=== PATIENT | female | born 1955 | race Caucasian/White ===

== ENCOUNTER → 2020-10-24 09:02 | Outpatient (CLI) | payer OTHER, SELFPAY ==
[2020-10-24 09:45] LABS: Add Manual Diff / Slide Review NO; Basophils Absolute Auto 100 /uL (0-100); Basophils Percent Auto 0.9 % (0-2); Eosinophils Absolute Auto 100 /uL (0-450); Eosinophils Percent Auto 1.8 % (2-4); Hematocrit 40.8 % (36-46); Hemoglobin 13.7 g/dL (12.0-16.0); Lymphocytes Absolute Auto 1700 /uL (1100-4500); Lymphocytes Percent Auto 29.3 % (25-40); Mean Corpuscular HGB Conc 33.6 % (30-36); Mean Corpuscular Hemoglobin 30.7 PG (26-34); Mean Corpuscular Volume 91.3 fL (80-100); Monocytes Absolute Auto 300 /uL (0-900); Monocytes Percent Auto 5.5 % (3-14); Neutrophils Absolute Auto 3600 /uL (1500-7000); Neutrophils Percent Auto 62.5 % (50-75); Platelet Count 190 X10^3/uL (150-400); Red Blood Cell Count 4.46 X10^6/uL (4.0-5.2); Red Cell Distribution Width 12.7 % (11.6-14.8); White Blood Cell Count 5.8 X10^3/uL (4.5-11.0)
[2020-10-24 09:54] LABS: Hemoglobin A1C% w Est Avg Glu 5.5 % (4.0-6.0)
[2020-10-24 10:02] LABS: Alanine Aminotransferase 21 IU/L (<35); Albumin 4.2 g/dL (3.5-5.0); Albumin Globulin Ratio 1.6 (1.0-2.8); Alkaline Phosphatase 82 U/L (38-126); Aspartate Aminotransferase 32 IU/L (14-36); BUN Creatinine Ratio 23.5 (6-22); Bilirubin Total 0.7 mg/dL (0.2-1.3); Blood Urea Nitrogen 12 mg/dL (7-17); Calcium 9.7 mg/dL (8.4-10.2); Carbon Dioxide 28 mmol/L (22-32); Chloride 105 mmol/L (98-107); Cholesterol 157 mg/dL (140-199); Estimated Glomerular Filt Rate > 60.0 mL/min (>60); Globulin 2.6 g/dL (1.7-4.1); Glucose 93 mg/dL (80-110); HDL Cholesterol 58 mg/dL (40-60); HEMOLYSIS < 15 (0-50); LDL Cholesterol Calculated 83 mg/dL (<100); Potassium 4.4 mmol/L (3.4-5.1); Sodium 140 mmol/L (137-145); Total Protein 6.8 g/dL (6.3-8.2); Triglycerides 82 mg/dL (35-150)
[2020-10-24 10:28] LABS: TSH w/ Reflex to FT4 4.33 uIU/mL (0.47-4.68)
== END ==
PROVIDERS: PCP Family Medicine; Referring Provider Family Medicine; Visit Provider Family Medicine
DX: D48.5 Neoplasm of uncertain behavior of skin (principal); N95.2 Postmenopausal atrophic vaginitis; Z13.220 Encounter for screening for lipoid disorders; Z85.3 Personal history of malignant neoplasm of breast
CPT/HCPCS: 36415; 80053; 80061; 83036; 84443; 85025

== ENCOUNTER → 2021-05-05 14:54 | Outpatient (CLI) | payer OTHER, SELFPAY ==
[2021-05-05 15:27] LABS: COVID19 -Nasal RAPID Negative (Negative)
== END ==
PROVIDERS: PCP Family Medicine; Referring Provider Nurse Practitioner Family; Visit Provider Nurse Practitioner Family
DX: R52 Pain, unspecified (principal); R53.83 Other fatigue
CPT/HCPCS: 87635

== ENCOUNTER → 2021-09-23 16:07 | Outpatient (CLI) | payer OTHER, SELFPAY ==
[2021-09-23 16:56] LABS: Appearance Urine UA SL CLOUDY; Bilirubin Urine UA NEGATIVE (NEGATIVE); Color Urine UA YELLOW; Glucose Urine UA NEGATIVE (Negative); Ketones Urine UA NEGATIVE (NEGATIVE); Leukocyte Esterase Urine UA 3+ (NEGATIVE); Nitrite Urine UA NEGATIVE (Negative); Occult Blood Urine UA 3+ (Negative); Protein Urine UA TRACE (Negative); Specific Gravity Urine UA <=1.005 (1.000-1.035); Urobilinogen Urine UA 0.2 E.U./dL (0.2)
[2021-09-23 17:33] LABS: Bacteria Urine Occasional (0-1); Culture Indicated Urine Specimen Cultured; RBC Urine 0-1/HPF (0-5/HPF); Squamous Epithelial Cell Urine 0-1 /HPF (0-5/HPF); WBC Urine 30-100/HPF (0-5/HPF)
== END ==
PROVIDERS: PCP Family Medicine; Referring Provider Student in an Organized Health Care Education/Training Program; Visit Provider Student in an Organized Health Care Education/Training Program
DX: R30.0 Dysuria (principal)
CPT/HCPCS: 81001; 87077; 87086; 87186

== ENCOUNTER → 2024-03-09 09:31 | Outpatient (CLI) | payer MEDICARE, SELFPAY ==
[2024-03-09 10:39] LABS: Add Manual Diff / Slide Review NO; Basophils Absolute Auto 100 /uL (0-100); Basophils Percent Auto 1.1 % (0-2); Eosinophils Absolute Auto 100 /uL (0-450); Eosinophils Percent Auto 2.3 % (2-4); Hematocrit 39.2 % (36-46); Lymphocytes Absolute Auto 1200 /uL (1100-4500); Lymphocytes Percent Auto 23.7 % (25-40); Mean Corpuscular HGB Conc 33.2 % (30-36); Mean Corpuscular Hemoglobin 30.4 PG (26-34); Mean Corpuscular Volume 91.5 fL (80-100); Monocytes Absolute Auto 400 /uL (0-900); Monocytes Percent Auto 7.3 % (3-14); Neutrophils Absolute Auto 3200 /uL (1500-7000); Neutrophils Percent Auto 65.6 % (50-75); Platelet Count 155 X10^3/uL (150-400); Red Blood Cell Count 4.28 X10^6/uL (4.0-5.2); Red Cell Distribution Width 13.3 % (11.6-14.8); White Blood Cell Count 4.9 X10^3/uL (4.5-11.0)
[2024-03-09 11:08] LABS: Alanine Aminotransferase 14 IU/L (<35); Albumin Globulin Ratio 1.5 (1.0-2.8); Alkaline Phosphatase 71 U/L (38-126); Aspartate Aminotransferase 24 IU/L (14-36); BUN Creatinine Ratio 25.4 (6-22); Bilirubin Total 0.8 mg/dL (0.2-1.3); Blood Urea Nitrogen 15 mg/dL (7-17); Calcium 9.4 mg/dL (8.4-10.2); Carbon Dioxide 31 mmol/L (22-32); Chloride 104 mmol/L (98-107); Cholesterol 148 mg/dL (140-199); Estimated Glomerular Filt Rate > 60 mL/min (>60); Globulin 2.6 g/dL (1.7-4.1); Glucose 95 mg/dL (80-110); HDL Cholesterol 67 mg/dL (40-60); HEMOLYSIS < 15 (0-50); LDL Cholesterol Calculated 68 mg/dL (<100); Potassium 4.8 mmol/L (3.4-5.1); Sodium 137 mmol/L (137-145); Total Protein 6.6 g/dL (6.3-8.2); Triglycerides 67 mg/dL (35-150)
[2024-03-09 19:25] LABS: Hep C Virus Ab w/Reflex Quant NEGATIVE s/c (NEGATIVE)
== END ==
PROVIDERS: PCP Family Medicine; Referring Provider Family Medicine; Visit Provider Family Medicine
DX: Z00.00 Encounter for general adult medical examination without abnormal findings (principal); Z85.3 Personal history of malignant neoplasm of breast; L57.0 Actinic keratosis; N95.2 Postmenopausal atrophic vaginitis
CPT/HCPCS: 36415; 80053; 80061; 85025; 86803

== ENCOUNTER → 2024-03-15 10:01 | Outpatient (CLI) | payer MEDICARE, SELFPAY ==
--- NOTE | 2024-03-15 | DI.CT.S_ITS ---
PROCEDURE: CT SOFT TISSUE NECK W CON INDICATIONS: TONSIL PAIN TECHNIQUE: After the administration of intravenous contrast, 3.0 mm axial sections acquired from the sella to the aortic arch. Additional oblique axial 3.0 mm sections acquired through the pharynx. 3 mm thick coronal and sagittal reformats were generated. For radiation dose reduction, the following was used: automated exposure control. COMPARISON: None. FINDINGS: Image quality: This examination is limited by involuntary motion artifact. Images are repeated, with some improvement. There is artifact associated with the metallic hardware. Artifact from the metallic hardware is reduced by metal reconstruction algorithm. Lymph nodes: No enlarged lymph nodes seen throughout the neck. Vessels: Visualized vasculature appears patent. Neck spaces: In this patient with this given history, scrutiny is given to the tonsils. The tonsils demonstrate a symmetric appearance, without abnormal enhancement or masses seen. The oropharynx, nasopharynx, and pharynx demonstrate no mucosal lesions. The vocal cords, false vocal cords, pyriform sinuses, epiglottis, vallecula, and tongue base all appear normal. Extramucosal spaces appear unremarkable. Glands: The parotid and submandibular glands appear normal. Thyroid gland demonstrates a nodule at the inferior pole of the left thyroid, measuring 1.7 cm. Miscellaneous: Visualized brain and orbits appear normal. Within the left lung apex, there is a focus of ground-glass opacity seen measuring 1.5 cm, as on series 4, image 65. Superficial soft tissues appear normal. Bones: No suspicious bony lesions. Visualized sinuses and mastoids appear unremarkable. Moderate cervical spine degenerative change is seen. IMPRESSION: No significant abnormality of the tonsils can be seen. No mucosal lesion is seen elsewhere. No enlarged lymph nodes are seen. 17 mm left thyroid nodule seen. - Please consider a dedicated follow-up thyroid ultrasound for further evaluation. 1.5 cm focus of ground-glass opacity seen within the left lung apex. - For further evaluation, a dedicated chest CT with IV contrast is now recommended. Additional findings: Moderate cervical spine degenerative change Dictated by: Adelso Clemente M.D. on 03/15/2024 at 11:32 Approved by: Adelso Clemente M.D. on 03/15/2024 at 11:36
== END ==
PROVIDERS: PCP Family Medicine; Referring Provider Otolaryngology; Visit Provider Otolaryngology
DX: R09.89 Other specified symptoms and signs involving the circulatory and respiratory systems; E04.1 Nontoxic single thyroid nodule; M47.812 Spondylosis without myelopathy or radiculopathy, cervical region
CPT/HCPCS: 70491; Q9967

== ENCOUNTER → 2024-03-15 10:10 | Outpatient (CLI) | payer MEDICARE, SELFPAY ==
--- NOTE | 2024-03-15 10:11 | DI.RAD.S_ITS ---
PROCEDURE: XR DEXA AXIAL SKELETON INDICATIONS: family hx of osteoporosis, post menopausal syndrome COMPARISON: None. FINDINGS: Lumbar Spine: Bone mineral density 0.66 g/cm2, T score -3.3 Left Hip: Bone mineral density 0.664 g/cm2, T score -2.3 Left Femoral Neck: Bone mineral density 0.572 g/cm2, T score -2.5 Right Hip: Bone mineral density 0.639 g/cm2, T score -2.5 Right Femoral Neck: Bone mineral density 0.549 g/cm2, T score -2.7 Fracture Risk Calculation (when applicable): 10-year fracture risk of a major osteoporotic fracture 12 percent and of a hip fracture 3.1 percent. (T score greater or equal to -1.0 to: NORMAL) (T score from -1.1 to -2.4: OSTEOPENIA) (T score less than or equal to -2.5: OSTEOPOROSIS) IMPRESSION: 1. Osteoporosis of the lumbar spine. 2. Osteopenia of the left hip, although approaching osteoporosis. 3. Osteoporosis of the left femoral neck. 4. Osteoporosis of the right hip and femoral neck. Follow-up guidelines as follows: Osteoporosis: Consider a repeat DEXA and Vertebral Fracture Assessment (VFA) exam in 2 years or sooner if medically necessary, to reassess this patient's status. Osteopenia: Consider a repeat DEXA in 2-3 years to reassess this patient's status, or if there is a new clinical indication. Normal: Consider a repeat DEXA in 5 years or sooner, or if there is a new clinical indication. All treatment decisions require clinical judgment and consideration of individual patient factors, including patient preferences, comorbidities, previous drug use, risk factors not captured in the FRAX model (e.g., frailty, falls, vitamin D deficiency, increased bone turnover, interval significant decline in bone density ) and possible under- or over-estimation of fracture risk by FRAX. In addition, the NOF Guide recommends that FDA-approved medical therapies be considered in postmenopausal women and men age >= 50 years with a: * Hip or vertebral (clinical or morphometric) fracture * T-score of <=-2.5 at the spine or hip * Ten-year fracture probability by FRAX of >= 3% for hip fracture or >=20% for major osteoporotic fracture. People with diagnosed cases of osteoporosis or at high risk for fracture should have regular bone mineral density tests. For patients eligible for Medicare, routine testing is allowed once every 2 years. The testing frequency can be increased to one year for patients who have rapidly progressing disease, those who are receiving or discontinuing medical therapy to restore bone mass, or have additional risk factors. Dictated by: Yadiel Perales M.D. on 03/15/2024 at 11:29 Approved by: Yadiel Perales M.D. on 03/15/2024 at 11:31
== END ==
PROVIDERS: PCP Family Medicine; Referring Provider Family Medicine; Visit Provider Family Medicine
DX: M81.0 Age-related osteoporosis without current pathological fracture (principal); R09.89 Other specified symptoms and signs involving the circulatory and respiratory systems; E04.1 Nontoxic single thyroid nodule; M47.812 Spondylosis without myelopathy or radiculopathy, cervical region
CPT/HCPCS: 70491; 77080; Q9967

== ENCOUNTER → 2024-03-21 06:50 | Outpatient (CLI) | payer MEDICARE, SELFPAY ==
--- NOTE | 2024-03-21 06:51 | DI.US.S_ITS ---
PROCEDURE: US THYROID INDICATIONS: THYROID NODULE TECHNIQUE: Real-time scanning was performed of the thyroid gland, with image documentation. COMPARISON: None. FINDINGS: Thyroid: Right lobe measures 4.3 x 1.6 x 1.5 cm. Left lobe measures 6.1 x 2.1 x 1.7 cm. Isthmus is 0.14 cm thick. Echotexture is homogeneous with slightly increased vascularity. Nodule number: 1 Location: Mid to lower pole left thyroid lobe Size: 2.7 x 2.0 x 1.5 cm. Composition: Predominantly solid Echogenicity: Isoechoic Shape: Wider than tall. Margins: Smooth loose Echogenic foci: Single calcification is noted with comet tail artifact. Total points: 3 ACR TI-RADS category: Mildly suspicious. IMPRESSION: Mildly suspicious mid to lower pole left thyroid lobe nodule as described above. Fine-needle aspiration is recommended due to its size. ACR TI-RADS definitions and recommendations: TI-RADS 1 (benign): 0 points. FNA not needed. TI-RADS 2 (not suspicious): 2 points. FNA not needed. TI-RADS 3: 3 points. * FNA if 2.5 cm or larger, follow up if 1.5 cm or larger (at 1, 3, and 5 years). TI-RADS 4: 4-6 points. * FNA if 1.5 cm or larger, follow up if 1 cm or larger (at 1, 2, 3, and 5 years). TI-RADS 5: 7 points or more. * FNA if 1 cm or larger, follow up if 0.5 cm or larger (every year for 5 years). Dictated by: Shamir Iglesias M.D. on 03/21/2024 at 11:48 Approved by: Shamir Iglesias M.D. on 03/21/2024 at 11:50
--- NOTE | 2024-03-21 06:52 | DI.CT.S_ITS ---
PROCEDURE: CT CHEST W CON INDICATIONS: Abnormal Neck CT TECHNIQUE: After the administration of intravenous contrast, 5 mm thick sections acquired from the pulmonary apices to the posterior costophrenic angles. 1 mm axial lung, 5 mm thick coronal and sagittal reformats and 7 mm axial MIP were acquired. For radiation dose reduction, the following was used: automated exposure control, adjustment of mA and/or kV according to patient size. COMPARISON: [facility], CT, CT SOFT TISSUE NECK W CON, 03/15/2024, 10:40. FINDINGS: Image quality: Diagnostic. Lower Neck: No enlarged lymph nodes. Thyroid: The left-sided thyroid soft tissue nodule is somewhat better visualized and measures up to 1.9 cm in maximal dimension. Axillae: No enlarged lymph nodes. Chest Wall: Unremarkable. Bones: Unremarkable. Lungs and Pleura: No pneumothorax or pleural effusions. At the lateral left lung apex seen on series 3, image 63 the subsolid pulmonary nodule ground-glass abnormality is again seen and measures up to 1.2 cm AP, 1.5 cm transverse and 1.8 cm craniocaudad. No additional pulmonary abnormality seen elsewhere. Heart: Heart size is normal. No pericardial effusion. Thoracic Vessels: The aorta and pulmonary arteries demonstrate normal size. Mediastinum and Mima: No enlarged lymph nodes. Esophagus: No wall thickening. No hiatal hernia. Upper Abdomen: Visualized upper abdomen solid organs and bowel loops appear normal. IMPRESSION: 1. Left apical subsolid pulmonary nodule measures up to 1.8 cm in maximal dimension and is a nonspecific finding that can represent alveolar scarring from prior inflammatory event, focal mild inflammatory process, and less commonly a manifestation of low-grade infiltrative malignancy. Follow-up noncontrast chest CT is recommended in 6 months to assess for interval change. 2. 1.9 cm maximal dimension left thyroid nodule, and a nodule of this size and appearance should be followed by dedicated thyroid ultrasound for more accurate assessment. Dictated by: Milind Bartholomew M.D. on 03/21/2024 at 9:16 Approved by: Milind Bartholomew M.D. on 03/21/2024 at 9:25
== END ==
PROVIDERS: PCP Family Medicine; Referring Provider Otolaryngology; Visit Provider Otolaryngology
DX: E04.1 Nontoxic single thyroid nodule (principal); R91.1 Solitary pulmonary nodule; R09.89 Other specified symptoms and signs involving the circulatory and respiratory systems
CPT/HCPCS: 71260; 76536; Q9967

== ENCOUNTER → 2024-08-26 12:04 | Outpatient (CLI) | payer OTHER, SELFPAY ==
--- NOTE | 2024-08-26 | PATH_ITS ---
Note [facility] Accession Number: [id number] TESTS RESULT FLAG UNITS REF RANGE LAB Clinician Provided Cytology Information No. of containers..01 Other (Miscellaneous) No. of containers..02 Previously Prepared Cytology Slide Source: LEFT THYROID NODULE #1 DIAGNOSIS: LEFT THYROID NODULE #1, FINE NEEDLE ASPIRATION. INCONCLUSIVE. BETHESDA CATEGORY III. ATYPIA OF UNDETERMINED SIGNIFICANCE, SEE COMMENT. COMMENT: EXAMINATION OF THE SMEARS REVEALS A MILDLY CELLULAR ASPIRATE, COMPOSED OF COLLOID, MACROPHAGES AND BENIGN FOLLICULAR GROUPS WITH FOCAL HURTHLE CELL CHANGES. IN ADDITION, THERE ARE RARE GROUPS WHERE MILD NUCLEAR ENLARGEMENT, OVERLAPPING AND RARE NUCLEAR MEMBRANE IRREGULARITIES. INTRANUCLEAR PSEUDOINCLUSIONS ARE NOT SEEN. THE RISK OF MALIGNANCY IN THE BETHESDA CATEGORY III IS 5-15%. ADDITIONAL MOLECULAR TESTING WILL BE PERFORMED ON THE SUBMITTED RNA VIAL FOR FURTHER EVALUATION. Pathologist ICD10: 01 E04.1 Signed out by: Scar Hassan MD, Pathologist NPI- [id number] Performed by: Colby Jacobsen, [employer] ([facility], [place]) Gross description: 30 CC, PINK, HAZY RECIEVED: IN CYTOLYT WITH 6 ALCOHOL FIXED AND 6 QUICK STAINED SLIDES ALSO 1 RNA VIAL WILL ON 12-20-2024.VO /VDU 08/27/2024 0748 Local FLAG LEGEND: L-Low Normal,H-High Normal,LL-Alert Low,HH-Alert High <-Panic Low,>-Panic High,A-Abnormal,AA-Critical Abnormal Performed at: 01 =Z [facility] [address], [place] [address] Neel Shah MD, Performed at: [address] [facility], [place], [place] [id number] MD Neel Shah MD Phone: [phone]
--- NOTE | 2024-08-26 12:06 | DI.US.S_ITS ---
PROCEDURE: US FINE NEEDLE ASPIRATION INDICATIONS: THYROID NODULE,BENIGN PAROXYSMAL POS VERTIGO TECHNIQUE: The indications, alternatives, benefits, risks, and complications of the procedure were explained to the patient. Written informed consent was obtained and placed in the chart. The thyroid region was examined sonographically and a site was chosen for ultrasound guided percutaneous sampling. The skin was prepared and draped in the usual fashion, and anesthetized with 1% lidocaine infiltrated from the skin down to the thyroid gland. Multiple passes were then performed, with contents emptied into an appropriate pathology specimen container. A bandage was applied to the area of access at completion of the study. COMPARISON: None. FINDINGS: Location(s) of lesion(s) sampled: Left thyroid lobe nodule. [place]: 25 gauge hypodermic needles. Number of passes: 6 Medications: 1% lidocaine for local anaesthesia. Complications: None. IMPRESSION: Successful ultrasound-guided thyroid nodule fine needle aspiration, with cytology results pending. Please see chart below for management recommendations based on cytology results. [place] [facility] ReportingRecommendationsNon-diagnostic* Repeat US-guided FNA, with on-site cytology evaluation if possible. * Repeated non-diagnostic nodules without high suspicion US features: close observation vs surgical consult. * Consider surgery if nodule has high suspicion US features, grows >20% in 2 dimensions on followup, or patient has clinical risk factors for malignancy. Benign* If nodule has high suspicion US features: repeat US and FNA within 12 months. * If nodule has low to intermediate suspicion US features: repeat US at 12-24 months. If nodule grows (20% increase in at least 2 dimensions, with minimal increase of 2 mm or >50% change in volume), or development of new suspicious US features, then repeat FNA or continue followup. * If nodule has very low suspicion US features: followup US at >24 months. Atypia of undetermined significance, follicular lesion of undetermined significanceRepeat FNA, molecular testing, followup US, or surgical consult.Follicular neoplasm, suspicious for follicular neoplasmSurgical consult; also consider molecular testing. Suspicious for malignancySurgical consult.MalignantSurgical consult. Dictated by: Shamir Iglesias M.D. on 08/26/2024 at 16:25 Approved by: Shamir Iglesias M.D. on 08/26/2024 at 16:25
== END ==
PROVIDERS: PCP Family Medicine; Visit Provider Radiology Diagnostic Radiology
DX: E04.1 Nontoxic single thyroid nodule (principal); H81.10 Benign paroxysmal vertigo, unspecified ear
CPT/HCPCS: 10005

== ENCOUNTER → 2024-10-20 09:35 | Outpatient (CLI) | payer OTHER, SELFPAY ==
--- NOTE | 2024-10-20 09:37 | DI.CT.S_ITS ---
PROCEDURE: CT CHEST WO CON INDICATIONS: Ground Glass Opacities TECHNIQUE: Noncontrast 5 mm thick sections acquired from the pulmonary apices to the posterior costophrenic angles. 1 mm lung window, 5 mm thick coronal and sagittal and 7 mm axial MIP reformats were then acquired. For radiation dose reduction, the following was used: automated exposure control, adjustment of mA and/or kV according to patient size. COMPARISON: [facility], CT, CT CHEST W CON, 03/21/2024, 7:31. FINDINGS: Image quality: Diagnostic. Lower Neck: No enlarged lymph nodes. Thyroid: Stable left thyroid nodule. Axillae: No enlarged lymph nodes. Chest Wall: Unremarkable. Bones: Unremarkable. Lungs and Pleura: No pneumothorax or pleural effusions. There is again seen a sub solid lung lesion in the left upper lobe superiorly. On the sagittal images this measures 1.9 x 1.48 cm compared to 1.8 x 1.27 cm previously. On the axial images this measures 1.7 x 1.24 cm compared to 1.37 x 1.12 cm previously. This is again seen to have a central solid component measuring 4.3 mm. No new focal lesion seen. Heart: Heart size is normal. No pericardial effusion. Thoracic Vessels: The aorta and pulmonary arteries demonstrate normal size. Mediastinum and Mima: No enlarged lymph nodes. Esophagus: No wall thickening. No hiatal hernia. Upper Abdomen: Visualized upper abdomen solid organs and bowel loops appear normal. IMPRESSION: 1. There has been mild interval enlargement of the sub solid lung lesion in the left upper lobe as described. Consequently, this is most suspicious for adenocarcinoma spectrum lesion. Surgical consultation suggested. If intervention is not performed, follow-up CT may be obtained in 6 months. 2. No new adenopathy or other suspicious focal lesion seen. Dictated by: Blas Merchant M.D. on 10/20/2024 at 13:10 Approved by: Blas Merchant M.D. on 10/20/2024 at 13:17
== END ==
PROVIDERS: PCP Family Medicine; Referring Provider Family Medicine; Visit Provider Student in an Organized Health Care Education/Training Program
DX: R93.89 Abnormal findings on diagnostic imaging of other specified body structures (principal); R91.8 Other nonspecific abnormal finding of lung field
CPT/HCPCS: 71250

== ENCOUNTER → 2024-10-31 11:13 | Outpatient (CLI) | payer OTHER, SELFPAY | PROVIDERS: PCP Family Medicine; Referring Provider Internal Medicine; Visit Provider Internal Medicine | DX: R91.1 Solitary pulmonary nodule (principal); R94.2 Abnormal results of pulmonary function studies | CPT/HCPCS: 94060; 94726; 94729 ==

== ENCOUNTER → 2024-11-13 11:22 | Outpatient (CLI) | payer OTHER, SELFPAY ==
--- NOTE | 2024-11-13 11:29 | EKG_ITS ---
[address] [address] Test Date: 2024-11-13 Pat Name: Erika Lopez Department: [facility] Room: Gender: Female [employer]: : 1955 Requested By: Order Number: [id number] Reading MD: Chirag Daniels MD Measurements Intervals [place] Rate: 66 P: 79 NC: 126 QRS: 76 QRSD: 86 T: 70 QT: 406 QTc: 425 Interpretive Statements Normal sinus rhythm Possible Left atrial enlargement Septal infarct , age undetermined Electronically Signed On 11-14-2024 7:30:18 PDT by Chirag Daniels MD
== END ==
PROVIDERS: PCP Family Medicine; Referring Provider Family Medicine; Visit Provider Family Medicine
DX: Z13.6 Encounter for screening for cardiovascular disorders (principal); R94.31 Abnormal electrocardiogram [ECG] [EKG]
CPT/HCPCS: 93005; 93010